=== PATIENT | male | born 1945 | race Caucasian/White ===

== ENCOUNTER → 2017-02-15 | Outpatient (CLI) | payer MEDICARE, BC ==
--- NOTE | 2017-02-15 12:30 | RADIOLOGY REPORT PS360 ---
History and Indications: Hypertension, diabetes, hyperlipidemia, family history and chest pain Procedure: Patient exercised on Deep protocol 7 minutes and 57 seconds, resting heart rate was 69 bpm resting blood pressure 162/84, with exercise maximum heart rate achieved was 1 41 bpm which is equal to 94% of the maximum predicted heart rate and a blood pressure was 217/96. Test was started due to shortness of breath patient denied any complained of chest pain. Patient has good exercise capacity achieved 10.1 mets of workload on treadmill, the blood pressure response to exercise was hypertensive. Electrocardiogram: Resting electrocardiogram show sinus rhythm right bundle branch block, with exercise there is [address] segment depression noted from the baseline EKG more pronounced in the recovery. Cardiac stress and resting SPECT images: Cardiac stress and the suspect images were obtained using technetium 99 Myoview 10.9 and 32.0 mCi at stress, gated SPECT further analysis of segmental wall motion and calculation of ejection fraction also done. Cardiac stress and rest SPECT images show decreased tracer activity in the anteroapical, apex, anteroseptal and inferolateral wall which improves on the resting images suggestive of reversible ischemia. Computer derived ejection fraction is 46% with mild inferolateral wall hypokinesis. Right ventricle is mildly enlarged with normal contractility. Conclusion: 1. The EKG portion of the exercise Myoview is positive for ischemia, patient has good exercise capacity achieved 10.1mets of workload on treadmill, the blood pressure response to exercise was hypertensive. Test was started due to shortness of breath patient denied complained of chest pain. 2. Scintigraphic evidence of reversible ischemia involving the anteroapical, apex, anteroseptal and inferolateral wall compatible with multivessel coronary artery disease. Computer derived ejection fraction is 46% with segmental wall motion abnormality described above, right ventricle is mildly enlarged with normal contractility. 3. Abnormal exercise Myoview study.
== END ==
LOC: RAD 07:15
DX: I20.9 Angina pectoris, unspecified (principal)
CPT/HCPCS: A9502

== ENCOUNTER → 2017-02-27 | Day surgery (SDC) | payer MEDICARE, BC ==
[2017-02-27 07:52] LABS: LYMPH # 2.4 K/mm3 (0.7-4.5); LYMPH % 27.8 % (10-50)
[2017-02-27 07:56] LABS: BUN 32 mg/dL (7-18)
[2017-02-27 07:57] LABS: HEMOGLOBIN 14.5 g/dL (14.1-18.0)
[2017-02-27 08:10] LABS: GFR (ESTIMATED) 55 ML/MIN (>60)
--- NOTE | 2017-02-27 10:19 | RADIOLOGY REPORT PS360 ---
CARDIAC CATHETERIZATION DATE OF CATHETERIZATION:02/27/2017 9:13 AM PROCEDURES: 1. Left heart catheterization 2. Left ventriculogram 3. Selective coronary angiogram INDICATION FOR TEST: 1. Abnormal high risk Myoview 2. Coronary artery disease 3. Angina pectoris Informed consent was obtained prior to the procedure. COMPLICATIONS: None ESTIMATED BLOOD LOSS: Less than 10 ml. TECHNIQUE: One percent lidocaine used to anesthetize the right anterior aspect of the wrist. The right radial artery was accessed via the Seldinger technique. A 6 [place] sheath was placed in the right radial artery. 2.5 mg of verapamil, 800 mcg of nitroglycerin and 5000 U Heparin were given through the arterial sheath. The trap and JL 3.5 catheter were used to perform left heart catheterization left ventriculogram and selective coronary angiography. Ventriculography. At the end of the procedure the patient was transferred to the post-op holding area in stable condition for arterial sheath removal. ANGIOGRAPHIC RESULTS: 1. The left main artery normal 2. The left anterior descending artery has a long ostial concentric 80% stenosis and then gives rise to a large bifurcating septal finish cleaner. The first diagonal artery also has an ostial proximal 80-90% stenosis. Distal to the first diagonal artery the LAD is occluded and then fills via left to left collaterals from the septal finish cleaner, the diagonal artery and the dominant circumflex artery 3. The circumflex artery is a large dominant vessel and and has a proximal 60% followed by an additional 50% stenosis and then gives rise to a very large first obtuse marginal artery. The first obtuse marginal artery has proximal 70 mid vessel 70% stenoses. 4. The right coronary artery is a small nondominant severely diffusely diseased vessel with proximal 70% mid vessel 90% stenoses and diffuse vasculopathic disease supplying small distal marginal branches 5. The [place]O ventriculogram reveals normal ejection fraction of 55% 6. The left ventricular end-diastolic pressure 15 mmHg IMPRESSION: 1. Severe three-vessel coronary artery disease as described above 2. Served to normal ejection fraction 3. Mildly elevated LVEDP PLAN: 1. Patient would benefit from bypass surgery. He will be referred to [facility] 2. Aggressive risk factor modification 3. LDL less than 55 4. Avoidance of tobacco products
--- NOTE | 2017-02-27 10:19 | RADIOLOGY REPORT PS360 ---
CARDIAC CATHETERIZATION DATE OF CATHETERIZATION:02/27/2017 9:13 AM PROCEDURES: 1. Left heart catheterization 2. Left ventriculogram 3. Selective coronary angiogram INDICATION FOR TEST: 1. Abnormal high risk Myoview 2. Coronary artery disease 3. Angina pectoris Informed consent was obtained prior to the procedure. COMPLICATIONS: None ESTIMATED BLOOD LOSS: Less than 10 ml. TECHNIQUE: One percent lidocaine used to anesthetize the right anterior aspect of the wrist. The right radial artery was accessed via the Seldinger technique. A 6 [place] sheath was placed in the right radial artery. 2.5 mg of verapamil, 800 mcg of nitroglycerin and 5000 U Heparin were given through the arterial sheath. The trap and JL 3.5 catheter were used to perform left heart catheterization left ventriculogram and selective coronary angiography. Ventriculography. At the end of the procedure the patient was transferred to the post-op holding area in stable condition for arterial sheath removal. ANGIOGRAPHIC RESULTS: 1. The left main artery normal 2. The left anterior descending artery has a long ostial concentric 80% stenosis and then gives rise to a large bifurcating septal community chest officer. The first diagonal artery also has an ostial proximal 80-90% stenosis. Distal to the first diagonal artery the LAD is occluded and then fills via left to left collaterals from the septal community chest officer, the diagonal artery and the dominant circumflex artery 3. The circumflex artery is a large dominant vessel and and has a proximal 60% followed by an additional 50% stenosis and then gives rise to a very large first obtuse marginal artery. The first obtuse marginal artery has proximal 70 mid vessel 70% stenoses. 4. The right coronary artery is a small nondominant severely diffusely diseased vessel with proximal 70% mid vessel 90% stenoses and diffuse vasculopathic disease supplying small distal marginal branches 5. The [place]O ventriculogram reveals normal ejection fraction of 55% 6. The left ventricular end-diastolic pressure 15 mmHg IMPRESSION: 1. Severe three-vessel coronary artery disease as described above 2. Served to normal ejection fraction 3. Mildly elevated LVEDP PLAN: 1. Patient would benefit from bypass surgery. He will be referred to [facility] 2. Aggressive risk factor modification 3. LDL less than 55 4. Avoidance of tobacco products
[2017-02-27 13:23] VITALS: BP 135/74
== END ==
LOC: CATHLAB 07:12
PROVIDERS: Internal Medicine
PROC: B2111ZZ Fluoroscopy of Multiple Coronary Arteries using Low Osmolar Contrast (ICD-10-PCS; 2017-02-27)
PROC: B2151ZZ Fluoroscopy of Left Heart using Low Osmolar Contrast (ICD-10-PCS; 2017-02-27)
PROC: 4A023N7 Measurement of Cardiac Sampling and Pressure, Left Heart, Percutaneous Approach (ICD-10-PCS; principal; 2017-02-27 09:45)
DX: I25.119 Atherosclerotic heart disease of native coronary artery with unspecified angina pectoris (principal); Z72.0 Tobacco use; R94.39 Abnormal result of other cardiovascular function study; I10 Essential (primary) hypertension; E11.9 Type 2 diabetes mellitus without complications
CPT/HCPCS: C1725; C1769; J1644; Q9967